=== PATIENT | female | born 1970 | race Caucasian/White ===

== ENCOUNTER 2017-09-02 00:59 | Emergency (ER) | payer OTHER ==
[~2017-09-02] VITALS: Ht 182.9 cm; Wt 88.5 kg
[2017-09-02] MEDS ORDERED: LAMICTAL100 MG PO (01:15)
[2017-09-02] MEDS ORDERED: LEVO-T25 MCG PO (01:15)
[2017-09-02] MEDS ORDERED: DICLOFENAC POTA50 MG PO (01:17)
[2017-09-02] MEDS ORDERED: EFFEXOR XR150 MG PO (01:18)
[2017-09-02] MEDS ORDERED: ESTRADIOL0.5 MG PO (01:19)
[2017-09-02] MEDS ORDERED: PERCOCET 5-3251 EACH PO (02:06)
== END 2017-09-02 02:27 | disposition home or self-care (01) ==
LOC: ED 00:59
PROC: 2W2KX4Z Dressing of Left Finger using Bandage (ICD-10-PCS; principal; 2017-09-02)
DX: T23.232A Burn of second degree of multiple left fingers (nail), not including thumb, initial encounter (principal); F17.200 Nicotine dependence, unspecified, uncomplicated; Z88.2 Allergy status to sulfonamides; Z88.5 Allergy status to narcotic agent; Z88.8 Allergy status to other drugs, medicaments and biological substances; Z79.899 Other long term (current) drug therapy; X08.8XXA Exposure to other specified smoke, fire and flames, initial encounter
CPT/HCPCS: 16020; 96374; 99283; J1170